=== PATIENT | female | born 1975 | race Caucasian/White ===

== ENCOUNTER 2016-11-23 14:29 | Emergency (ER) | payer SELFPAY ==
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
== END 2016-11-23 15:30 | disposition home or self-care (01) ==
LOC: VM.ED 14:29
DX: J02.9 Acute pharyngitis, unspecified (principal)
CPT/HCPCS: 99282-GF; 99283

== ENCOUNTER 2016-12-15 21:26 | Emergency (ER) | payer SELFPAY ==
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
[2016-12-15 22:41] LABS: CHLORIDE,CL 96 mmol/L (98-107); SODIUM,NA 132 mmol/L (136-145)
[2016-12-15] MEDS ORDERED: Potassium Chloride 10 MEQ Tab.ER PO ONE (22:44)
== END 2016-12-15 23:39 ==
LOC: VM.ED 21:26
DX: M79.642 Pain in left hand (principal); F20.9 Schizophrenia, unspecified; X83.8XXA Intentional self-harm by other specified means, initial encounter
CPT/HCPCS: 36415; 73120; 80053; 80305; 81001; 85025; 99285; A9270; G0480; 99284-GF